=== PATIENT | male | born 1970 | race Caucasian/White ===

== ENCOUNTER → 2016-12-09 | Outpatient (CLI) | payer OTHER | LOC: HYPER 07:07 | DX: L89.324 Pressure ulcer of left buttock, stage 4 (principal); L89.314 Pressure ulcer of right buttock, stage 4; L89.614 Pressure ulcer of right heel, stage 4; L89.894 Pressure ulcer of other site, stage 4; L89.893 Pressure ulcer of other site, stage 3; N18.9 Chronic kidney disease, unspecified; S81.802D Unspecified open wound, left lower leg, subsequent encounter; Z48.815 Encounter for surgical aftercare following surgery on the digestive system; E46 Unspecified protein-calorie malnutrition; Z89.429 Acquired absence of other toe(s), unspecified side; X58.XXXD Exposure to other specified factors, subsequent encounter; Z87.891 Personal history of nicotine dependence ==

== ENCOUNTER → 2017-02-07 | Outpatient (CLI) | payer OTHER ==
[~2017-02-07] VITALS: Ht 170.2 cm; Wt 111.0 kg
[~2017-02-07] MED LIST: ARANESP25 MCG/1 M SUBQ; COLACE100 MG PO; CREON DR 3,0001 EACH PO; DUONEB 2.5-0.5 M3 ML INH; FLONASE 0.05%50 MCG NASAL; HEPARIN SO5000 UNIT2 SUBQ; MELATONIN1 MG PO; MIRALAX17 GM PO; NEPRO CARB STE237 ML PER TUBE; NEURONTIN 300300 M1 PO; ONDANSETRON HCL4 M2 PO; OXYCODONE HCL15 MG PO; PROTEIN POWDER480 GM PO; PYRIDOXINE HCL50 MG PO; RENVELA800 MG PO; ROBITUSSIN100 MG/53 PER TUBE; SEROQUEL 25 MG25 M2 PO; SILVADENE20 GM TOP; SODIUM BICARBO650 M3 PO; VAN500AD IVPB; VANCOCIN 125 M125 M1 PO; VENOFER200 MG/10 IVPB; VITAMIN B-12500 MCG PO; VITAMINC500 PO; ZINC SULFATE 2220 M1 PO; ZOSYN 2.25 GR2.25 GM IVPB
[2017-02-07 12:20] VITALS: BP 134/84
[2017-02-07 13:52] LABS: PROTIME 10.7 Seconds (9.3-11.4)
== END ==
LOC: SPEC 09:30
PROVIDERS: Radiology Diagnostic Radiology
DX: N19 Unspecified kidney failure (principal); Z87.891 Personal history of nicotine dependence; G82.20 Paraplegia, unspecified; M86.8X8 Other osteomyelitis, other site; N18.6 End stage renal disease; Z99.2 Dependence on renal dialysis; K86.1 Other chronic pancreatitis; Z89.422 Acquired absence of other left toe(s); Z89.421 Acquired absence of other right toe(s)